=== PATIENT | female | born 1950 | race American Indian/Alaskan Native ===

== ENCOUNTER 2020-06-19 17:38 | Emergency (ER) | payer MEDICARE ==
--- NOTE | 2020-06-19 18:19 | Emergency Department Report ---
Blank Doc - Documentation Documentation: 69-year-old female that presents with left under breast bleeding. Tachycardia in triage. This initial assessment/diagnostic orders/clinical plan/treatment(s) is/are subject to change based on patient's health status, clinical progression and re- assessment by fellow clinical providers in the ED. Further treatment and workup at subsequent clinical providers discretion. Patient/guardians urged not to elope from the ED as their condition may be serious if not clinically assessed and managed. Initial orders include: 1- Patient sent to MAIN ED for further evaluation and treatment 2- labs due to tachycardia
[2020-06-19 18:58] LABS: Basophils # (Auto) 0.1 K/mm3 (0.0-0.1); Basophils % (Auto) 0.5 % (0.0-1.8); Eosinophils % (Auto) 0.1 % (0.0-4.3); Hematocrit 31.9 % (30.3-42.9); Hemoglobin 10.7 gm/dl (10.1-14.3); Lymphocytes # (Auto) 1.2 K/mm3 (1.2-5.4); Lymphocytes % (Auto) 10.2 % (13.4-35.0); Mean Corpuscular HGB Conc 34 % (30-34); Mean Corpuscular Volume 86 fl (79-97); Monocytes # (Auto) 0.9 K/mm3 (0.0-0.8); Monocytes % (Auto) 7.4 % (0.0-7.3); Platelet Count 405 K/mm3 (140-440); Red Blood Count 3.74 M/mm3 (3.65-5.03); Red Cell Distribution Width 14.5 % (13.2-15.2)
[2020-06-19 19:11] LABS: Blood Urea Nitrogen 11 mg/dL (7-17); Calcium 10.5 mg/dL (8.4-10.2); Hemolysis Index 0
[2020-06-19 19:25] LABS: BUN/Creatinine Ratio 18
[2020-06-19 20:33] LABS: Bacteria,Urine 3+ /HPF (Negative); Bilirubin,Urine NEG (Negative); Blood,Urine NEG (Negative); Color,Urine Yellow (Yellow); Mucus,Urine 3+ /HPF
--- NOTE | 2020-06-19 20:48 | Emergency Department Report ---
ED General Adult HPI - General Chief complaint: Urogenital-Female Stated complaint: BLEEDING UNDERNEATH BREAST Time Seen by Provider: 06/19/20 18:18 Source: patient, family Mode of arrival: Wheelchair Limitations: No Limitations - History of Present Illness Initial comments: 69-year-old female, history of hypertension, presents to ED with a "bruise" und erneath her left breast. Patient states it has been open and bleeding for 3-4 weeks now. She denies any pain. Upon lifting shirt patient appears to have a fungating mass present. When asked if it has only been 3 to 4 weeks, patient states, "I think it has been a little longer than that." Patient also reports significant weight loss, however she is unable to state how many pounds, or over what amount of time. She denies any chest pain or shortness of breath. -: week(s) (4) Location: chest Severity scale (0 -10): 3 Quality: other (Painless) Consistency: constant Improves with: none Worsens with: none Associated Symptoms: denies: chest pain, fever/chills, nausea/vomiting, shortness of breath - Related Data Previous Rx's Medication Instructions Recorded Last Taken Type Sulfamethoxazole/Trimethoprim 1 each PO BID #6 tablet 06/19/20 Unknown Rx [Bactrim DS TAB] Allergies Allergy/AdvReac Type Severity Reaction Status Date / Time No Known Allergies Allergy Unverified 06/19/20 17:57 ED Review of Systems ROS: Stated complaint: BLEEDING UNDERNEATH BREAST Other details as noted in HPI Comment: All other systems reviewed and negative Constitutional: other (Patient reports weight loss). denies: fever Respiratory: denies: shortness of breath Cardiovascular: denies: chest pain Musculoskeletal: as per HPI ED Past Medical Hx - Past Medical History Previous Medical History?: Yes Hx Hypertension: Yes - Surgical History Past Surgical History?: No - Social History Smoking Status: Never Smoker Substance Use Type: None - Medications Home Medications: Home Medications Medication Instructions Recorded Confirmed Last Taken Type Sulfamethoxazole/Trimethoprim 1 each PO BID #6 tablet 06/19/20 Unknown Rx [Bactrim DS TAB] ED Physical Exam - General Limitations: No Limitations General appearance: alert, in no apparent distress - Head Head exam: Present: atraumatic, normocephalic - Eye Eye exam: Present: normal appearance, EOMI - ENT ENT exam: Present: mucous membranes moist - Neck Neck exam: Present: normal inspection - Respiratory Respiratory exam: Present: normal lung sounds bilaterally. Absent: respiratory distress - Cardiovascular Cardiovascular Exam: Present: normal rhythm, tachycardia - GI/Abdominal GI/Abdominal exam: Present: soft. Absent: distended, tenderness - Extremities Exam Extremities exam: Present: other (large palpable mass in the left axilla) - Neurological Exam Neurological exam: Present: alert, oriented X3 - Psychiatric Psychiatric exam: Present: normal affect, normal mood - Skin Skin exam: Present: other (Fungating mass present in left breast fold, some areas of necrosis and scant bleeding; approximately 7 cm) ED Course Vital Signs 06/19/20 06/19/20 06/19/20 17:55 20:23 23:28 Temperature 98.3 F 98.7 F Pulse Rate 135 H 104 H 94 H Respiratory 16 18 17 Rate Blood Pressure 128/79 Blood Pressure 137/68 125/63 [Left] O2 Sat by Pulse 97 97 99 Oximetry ED Medical Decision Making - Lab Data Result diagrams: 06/19/20 18:30 06/19/20 18:30 - Radiology Data Radiology results: report reviewed, image reviewed - Medical Decision Making 69-year-old female presents to ED with fungating mass of left breast. CT shows focal invasion of the chest wall with evidence of metastatic disease. Both patient and deny any previous lobectomy or surgeries to the chest or lungs. Patient reports she had TB many years ago which was treated. I discussed the case with Dr. Lynn, radiologist, informing her that patient denies any previous lobectomy. She believes incidental finding of left lung abnormality is likely due to some sort of congenital lung abnormality, as right lung size appears to be compensatory. states he attempted to get patient in with her PCP, Dr. Gage Lewis, a few months ago, however her appointment was canceled secondary to the pandemic. Informed patient and of likelihood of breast malignancy with metastasis. Patient has been encouraged to try and get another appointment with her PCP. We will also provide information for breast surgeon. Patient also has evidence of UTI, will give antibiotics. Vital signs are normal. She does not meet inpatient criteria. Will discharge at this time. Return precautions given. - Differential Diagnosis Breast cancer Critical care attestation.: If time is entered above; I have spent that time in minutes in the direct care of this critically ill patient, excluding procedure time. ED Disposition Clinical Impression: Breast mass, UTI (urinary tract infection) Disposition: TO HOME OR SELFCARE Is pt being admited?: No Condition: Stable Instructions: Breast Cancer, Female, Urinary Tract Infection, Adult Additional Instructions: Your CAT scan is concerning for breast cancer and possible spread of the cancer to your bones. You need to follow-up with your PCP immediately. We have also provided information for a breast specialist that you should also follow-up with. Prescriptions: Sulfamethoxazole/Trimethoprim [Bactrim DS TAB] 1 each PO BID #6 tablet Referrals: PRIMARY MD SHAYLA [Primary Care Provider] - AUSTIN GOODWIN MD [Staff Physician] - JIN Time of Disposition: 23:37
[2020-06-19] MEDS ORDERED: SODIUM CHLORIDE 0.9% 1000 ML 1,000 ML IV ONE (20:55)
--- NOTE | 2020-06-19 22:48 | Cat Scan Report ---
CT chest w con INDICATION / CLINICAL INFORMATION: Pt states there a mass underneath LEFT breast, also with pain. TECHNIQUE: Axial CT imaging of the thorax was obtained with IV contrast. Coronal and sagittal reformatted imagin g obtained and reviewed. All CT scans at this location are performed using CT dose reduction for ALA RA by means of automated exposure control. COMPARISON: None available. FINDINGS: CT chest with contrast demonstrates a very large soft tissue mass involving the inferior aspect of th e left breast, in the inframammary fold region, highly likely a breast carcinoma.. The mass is large measuring approximately 6.5 cm in greatest diameter. It is involving the chest wall and anterior left ribs. Additionally there are several masses adjacent to the sternum consistent with metastatic inter nal mammary lymph nodes. There are numerous large masses in the left axilla consistent with metastati c axillary adenopathy. No significant volume loss in the left hemithorax due to prior lobectomy. Numerous cystic areas are seen within the left hemithorax, more than likely postoperative findings. T he right lung is well expanded. There are several noncalcified small pulmonary nodules scattered thro ughout the right lung, very likely pulmonary metastases. No definite mediastinal or hilar adenopathy. The thyroid gland is enlarged. There is a solid mass arising from the inferior aspect of the thyroid gland measuring 3.3 cm consistent with goiter. Images of the upper abdomen do not demonstrate any visible hepatic disease such as metastases. Both a drenal glands are normal in appearance. Gallstones are present within the gallbladder. Spleen and bell creas are unremarkable. Review of osseous structures demonstrates numerous blastic lesions throughout the visualized thoracic spine and upper lumbar spine consistent with osseous metastases. As stated in the above discussion, there is focal involvement of anterior left ribs from the primary breast mass. Additionally there is significant involvement with both lytic and sclerotic lesions throughout the sternum. IMPRESSION: 1. Large inferior left breast mass with focal invasion of the left chest wall, most likely a breast c arcinoma. Additionally, there is evidence for left axillary metastatic adenopathy, internal mammary c christiano adenopathy, numerous pulmonary metastases, and widespread skeletal metastases. 2. Cholelithiasis. 3. Inferior thyroid mass most likely goiter. Signer Name: Jesenia Lynn MD Signed: 06/19/2020 10:44 PM Workstation Name: [id number]
[2020-06-19 23:29] VITALS: BP 125/63
== END 2020-06-19 23:50 | disposition home or self-care (01) ==
LOC: ED 17:38
DX: N63.0 Unspecified lump in unspecified breast (principal); N39.0 Urinary tract infection, site not specified; R07.89 Other chest pain; I10 Essential (primary) hypertension; Z79.899 Other long term (current) drug therapy
CPT/HCPCS: 36415; 71260; 80048; 81001; 84443; 85025; 87086; 96360; 99284; J7030; Q9967

== ENCOUNTER 2020-06-28 11:31 | Outpatient (CLI) | payer MEDICARE, MEDICAID | END 2020-06-28 11:32 | disposition home or self-care (01) | LOC: LABHHL 11:31 | PROVIDERS: ATTEND Surgery | DX: N63.25 Unspecified lump in the left breast, overlapping quadrants (principal); L98.9 Disorder of the skin and subcutaneous tissue, unspecified | CPT/HCPCS: 88305 ==

== ENCOUNTER 2020-07-11 10:33 | Outpatient (CLI) | payer MEDICARE ==
--- NOTE | 2020-07-11 13:02 | Ultrasound Report ---
BILATERAL DIGITAL DIAGNOSTIC MAMMOGRAM WITH CAD , 07/11/2020 LEFT COMPLETE BREAST ULTRASOUND CLINICAL INFORMATION / INDICATION: The patient recently presented to the emergency department for a f ungating left chest/left breast mass. She underwent CT of the chest on 06/19/2020, which demonstrated a large irregular infiltrative mass involving the left breast and left chest wall with axillary adeno ap. She presents today for additional surgical evaluation. TECHNIQUE: Digital bilateral mammographic imaging was performed. Complete ultrasound of all four (4) quadrants was performed. This examination was interpreted with the benefit of Computer-Aided Detectio n (CAD) analysis. COMPARISON: None FINDINGS: Breast Density: There are scattered areas of fibroglandular density. MAMMOGRAPHIC FINDINGS: Right breast: No dominant mass, suspicious calcifications, or architectural distortion in the right b reast. Left breast: The left breast is distorted and retracted. The mass seen on the recent chest CT is not well visualized due to its posterior location and patient's inability to tolerate adequate positionin g. ULTRASOUND FINDINGS: Complete sonographic evaluation of all 4 quadrants and retroareolar region was p erformed. Sonographic evaluation of the left breast demonstrates an irregular hypoechoic solid mass involving the central left breast and left chest. It is difficult to fully evaluate its size due to its indistinct margins but measures at least 5.2 x 2.2 cm. Sonographic evaluation of the left axilla demonstrates marked left axillary adenopathy. As a referenc e, a lymph node measures 2.9 x 2.5 cm. IMPRESSION: 1. Large irregular left breast and left chest wall mass resulting in marked left breast distortion as demonstrated on recent CT of the chest with associated left axillary adenopathy. Findings are highly suggestive for left breast neoplasm. Surgical consultation is underway and punch biopsy was performe d at the time of patient's visit. 2. No mammographic abnormality of the right breast. Follow up recommendation: Surgical consult BI-RADS Category 5: Highly Suggestive of Malignancy. A "normal" or negative report should not discourage follow up or biopsy of a clinically significant f inding. A written summary of these findings will be mailed to the patient. The patient will be entered into a mammography reporting system which will generate a reminder letter for the patient's next appointmen t at the appropriate interval. According to the [employer], yearly mammograms are recommended starting at age 40 and continuing as long as a woman is in good health. Breast MRI is recommended for women with an ashwin roximately 20-25% or greater lifetime risk of breast cancer, including women with a strong family his tory of breast or ovarian cancer and women who have been treated for Hodgkin's disease. Signer Name: Anaya Jurado MD Signed: 07/11/2020 12:57 PM Workstation Name: [email or web address]
== END 2020-07-11 10:34 | disposition home or self-care (01) ==
LOC: SPVWC 10:33
PROVIDERS: ATTEND Surgery
DX: R92.8 Other abnormal and inconclusive findings on diagnostic imaging of breast (principal); R59.0 Localized enlarged lymph nodes
CPT/HCPCS: 77066